=== PATIENT | female | born 1995 | race Caucasian/White ===

== ENCOUNTER → 2020-07-23 | Outpatient (CLI) | payer SELFPAY | LOC: M LABSMTC 13:15 | PROVIDERS: ATTEND Pediatrics | DX: Z20.828 Contact with and (suspected) exposure to other viral communicable diseases (principal) ==

== ENCOUNTER → 2020-08-09 | Outpatient (REF) | payer BC ==
[2020-08-09 14:51] LABS: HEPATITIS A ANTIBODY IGM NEGATIVE (NEGATIVE); HEPATITIS B CORE ANTIBODY IGM NEGATIVE (NEGATIVE); HEPATITIS B SURFACE ANTIGEN NEGATIVE (NEGATIVE); HEPATITIS C VIRUS ABY INDEX 0.1 INDEX (<0.8); HIV 1&2 SCREEN CENTAUR NEGATIVE (NEGATIVE)
== END ==
LOC: M PLALAB 09:15
PROVIDERS: ATTEND Advanced Practice Midwife
DX: Z12.4 Encounter for screening for malignant neoplasm of cervix (principal)
CPT/HCPCS: 36415; 86705; 86709; 86780; 86803; 87340; 87389; 87490; 87590; 87661; G0123

== ENCOUNTER → 2020-08-30 | Outpatient (CLI) | payer BC ==
--- NOTE | 2020-08-30 16:53 | REP ---
INDICATION: Z30.431 IUD CK COMPARISON: None. TECHNIQUE: Transabdominal pelvic ultrasound followed by transvaginal examination for better evaluation of the endometrium with color evaluation of the ovaries. FINDINGS: Bladder is under distended and grossly unremarkable. Normal anteverted uterus measures 6.1 x 2.6 x 3.8 cm. The endometrial complex measures 2 mm thickness. IUD identified in central satisfactory position. Bilateral ovaries are normal in appearance and vascularity without evidence for torsion. Right ovary measures 3.8 x 2.1 x 2.9 cm; left ovary measures 3.0 x 2.0 x 2.1 cm. No pelvic fluid or adnexal mass lesion. IMPRESSION: Normal pelvic ultrasound. IUD in central satisfactory position. <Electronically signed by Jayden Briceno > 08/30/20 1008
== END ==
LOC: M WHC 15:04
PROVIDERS: ATTEND Advanced Practice Midwife
DX: Z30.431 Encounter for routine checking of intrauterine contraceptive device (principal)

== ENCOUNTER → 2020-11-19 | Outpatient (REF) | LOC: M LABSMTC 12:13 | PROVIDERS: ATTEND Pediatrics | DX: Z11.52 Encounter for screening for COVID-19 (principal) ==

== ENCOUNTER → 2021-03-12 | Outpatient (REF) | LOC: M EMP 12:09 | PROVIDERS: ATTEND Family Medicine | DX: Z11.52 Encounter for screening for COVID-19 (principal) ==